=== PATIENT | female | born 1980 | race Caucasian/White ===

== ENCOUNTER 2016-10-20 19:37 | Emergency (ER) | payer OTHER ==
[~2016-10-20 19:37] MED LIST: ATIVAN-DPS1 MG PO; DELTASONE DPS20 MG PO; FIORICET 50-301 EACH PO; KEPPRA1000 MG PO; MACROBID 100 M100 MG PO; MOTRIN-DPS400 MG PO; PERCOCET 5 DPS1 TAB PO; SENOKOT S1 TAB PO; SYNTHROID150 MCG PO; ULTRAM DPS50 MG PO; URECHOLINE-DPS25 MG PO; ZANAFLEX4 MG PO
== END 2016-10-20 21:45 | disposition home or self-care (01) ==
DX: G43.909 Migraine, unspecified, not intractable, without status migrainosus (principal); E03.9 Hypothyroidism, unspecified; G40.909 Epilepsy, unspecified, not intractable, without status epilepticus; Z79.899 Other long term (current) drug therapy